=== PATIENT | female | born 1935 | race Caucasian/White ===

== ENCOUNTER 2016-10-25 11:42 | Observation (INO) | payer MEDICARE, OTHER ==
[2016-10-25 11:42] VITALS: BMI 23.0
[2016-10-25] MEDS ORDERED: Sodium Chloride 0.9% 1,000 ML IV STA (12:15)
--- NOTE | 2016-10-25 12:23 | ED PDOC ---
HPI: General Adult Time Seen by Provider: 10/25/16 12:00 Chief Complaint (Nursing): GI Problem Chief Complaint (Provider): Diarrhea History Per: Patient History/Exam Limitations: no limitations Onset/Duration Of Symptoms: Days Have you had recent travel within the past 21 days to any of the following countries: [place], [place], [place] or [place]?: No Current Symptoms Are (Timing): Still Present Severity: None Additional Complaint(s): 81 y/o F with PMHx of CVA and pacemaker implantation in 2004, Chronic body aches , osteoporosis, presents to ED c/o watery diarrhea for 11 days. Patient states for the past 2 days the diarrhea is less frequent but black. She admits taking Pepto bismol the past couple of days. Denies abd pain. C/o burping frequently. Denies fever, SON, CP, palpitations. Admits lack of appetite, generalized weakness. Patient takes multiple medication including Tylenol, Lyrica, Alendronate, Omeprazole, Amlodipine. Denies recent hospitalizations or abx use. Past Medical History Vital Signs: Last Vital Signs Temp 97 F L 10/25/16 11:43 Pulse 73 10/25/16 11:43 Resp 16 10/25/16 11:43 BP 163/100 H 10/25/16 11:43 Pulse Ox 98 10/25/16 16:52 - Medical History PMH: Arthritis, CAD, CVA, Depression, HTN, Hypothyroidism Denies: Diabetes, Hepatitis, HIV, Seizures, Sexually Transmitted Disease - Surgical History Surgical History: Pacemaker Other surgeries: BTL. Shoulder Sx - Family History Family History: States: Unknown Family Hx - Living Arrangements Living Arrangements: Alone - Home Medications Home Medications: Ambulatory Orders Medication Instructions Recorded Carvedilol [Coreg] 6.25 mg PO BID 02/27/14 Cilostazol 100 mg PO DAILY 02/27/14 Clopidogrel [Plavix] 75 mg PO DAILY 02/27/14 Escitalopram [Lexapro] 10 mg PO DAILY 02/27/14 Gabapentin [Neurontin] 100 mg PO BID 02/27/14 Levothyroxine [Synthroid] 0.05 mg PO DAILY 02/27/14 Meclizine [Antivert] 12.5 mg PO DAILY 02/27/14 Megestrol [Megace] 20 mg PO DAILY 02/27/14 Mometasone Furoate [Nasonex] 0.05 mg NS DAILY 02/27/14 Naproxen [Naprosyn] 250 mg PO DAILY 02/27/14 Pregabalin [Lyrica] 50 mg PO DAILY 02/27/14 Diazepam [Valium] 2 mg PO BID PRN #10 tab 09/10/14 Non-Formulary 1 ea .ROUTE DAILY #0 ea 09/10/14 - Allergies Allergies/Adverse Reactions: Allergies Allergy/AdvReac Type Severity Reaction Status Date / Time No Known Allergies Allergy Verified 09/09/14 21:39 Review of Systems ROS Statement: Except As Marked, All Systems Reviewed And Found Negative Constitutional: Positive for: Weakness Gastrointestinal: Positive for: Diarrhea Physical Exam - Reviewed Nursing Documentation Reviewed: Yes Vital Signs Reviewed: Yes - Physical Exam Appears: Positive for: Non-toxic, No Acute Distress Head Exam: Positive for: ATRAUMATIC, NORMAL INSPECTION Skin: Positive for: Normal Color, Dry Eye Exam: Positive for: EOMI, PERRL Cardiovascular/Chest: Positive for: Regular Rate, Rhythm, Murmur. Negative for : Gallop Respiratory: Positive for: Normal Breath Sounds. Negative for: Crackles, Wheezing Gastrointestinal/Abdominal: Positive for: Soft. Negative for: Tenderness, Distended, Guarding, Rebound Extremity: Negative for: Pedal Edema, Calf Tenderness Neurologic/Psych: Positive for: Alert, Oriented - Laboratory Results Result Diagrams: 10/25/16 12:53 10/25/16 12:53 - ECG O2 Sat by Pulse Oximetry: 98 - Progress ED Course And Treament: Hemocult and rectal exam negative for blood. CT shows Colitis, diverticulosis but no diverticulitis Hyperchrolemia No white count or other electrolyte imbalance Patient to be admitted for obs and to receive IV abx treatment with Cipro and Flagyl for Colitis Medical Decision Making Medical Decision Makin81 y/o F with PMHx of Osteporosis, chronic pain, pacemaker and stroke presents c /o diarrhea and black stools Diarrhea Dark stools(concomitant used of bismuth ) R/O GI bleeding(Patient on multiple meds) CBC, CMP FOBT Abd and pelvis CT with IV contrast Acetaminophen level IV fluids Disposition - Clinical Impression Clinical Impression: Colitis - Patient ED Disposition Is Patient to be Admitted: Yes - Disposition Disposition Time: 17:10 Condition: STABLE Forms: [employer] (Citizen [place])
[2016-10-25 13:02] LABS: BASO % 0.6 % (0.0-2.0); EOS # 0.1 K/uL (0.0-0.7); EOS % 1.3 % (0.0-4.0); LYMPH # 1.7 K/uL (1.0-4.3); LYMPH % 37.3 % (20.0-40.0); MEAN CELL VOLUME 80.6 fl (81.0-99.0); MEAN CORPUSCULAR HEMOGLOBIN 26.7 pg (27.0-31.0); MEAN CORPUSCULAR HGB CONC 33.2 g/dL (33.0-37.0); MEAN PLATELET VOLUME 9.1 fl (7.2-11.7); MONO # 0.5 K/uL (0.0-0.8); MONO % 10.9 % (0.0-10.0); NEUT # 2.3 K/uL (1.8-7.0); NEUT % 49.9 % (50.0-75.0); NRBC % 0.1 % (0.0-0.0); RBC 4.5 Mil/uL (3.80-5.20); RED CELL DISTRIBUTION WIDTH 14.1 % (11.5-14.5); WHITE BLOOD COUNT 4.7 K/uL (4.8-10.8)
[2016-10-25 13:08] LABS: ALB/GLOB RATIO 1.3 (1.0-2.1); ALBUMIN 3.9 g/dL (3.5-5.0); CALCIUM 9.5 mg/dL (8.4-10.2)
[2016-10-25 13:16] LABS: INR 1.1 (0.9-1.2); PROTHROMBIN TIME 11.4 Seconds (9.8-13.1)
[2016-10-25] MEDS ORDERED: Iohexol 300 100 ML IJ ONE (13:18)
[2016-10-25] MEDS ORDERED: Sodium Chloride 0.9% 0 ML IV ONE (13:18)
[2016-10-25] MEDS ORDERED: Sodium Chloride 0.9% 50 ML IV ONE (13:34)
[2016-10-25 15:03] LABS: SQUAMOUS EPITHIAL 1 /hpf (0-5); URINE BACTERIA RARE (<OCC); URINE BILIRUBIN NEGATIVE (NEGATIVE); URINE BLOOD NEGATIVE (NEGATIVE); URINE CLARITY CLEAR (Clear); URINE COLOR YELLOW (YELLOW); URINE GLUCOSE (UA) NEG (Normal); URINE LEUKOCYTE ESTERASE MOD Leu/uL (Negative); URINE NITRATE NEGATIVE (NEGATIVE); URINE PROTEIN NEGATIVE (NEGATIVE); URINE UROBILINOGEN 0.2-1.0 mg/dL (0.2-1.0)
--- NOTE | 2016-10-25 15:51 | CARD ---
APPROVED REPORT EKG Measurement Heart [id number] [place] [id number] <Conclusion> Normal sinus rhythm Normal ECG
--- NOTE | 2016-10-25 16:16 | CT ---
PROCEDURE: CT Abdomen and Pelvis without intravenous contrast HISTORY: Diarrhea COMPARISON: None. TECHNIQUE: CT scan of the abdomen and pelvis was performed without administration of intravenous contrast. Oral contrast was not administered. Coronal and sagittal reformatted images were obtained. Radiation dose: Total exam DLP = 552.29 mGy-cm. This CT exam was performed using one or more of the following dose reduction techniques: Automated exposure control, adjustment of the mA and/or kV according to patient size, and/or use of iterative reconstruction technique. FINDINGS: LOWER THORAX: The lung bases are clear. LIVER: The liver is normal in size. A small low-attenuation area in the hepatic dome is statistically most compatible with a small cyst. No intrahepatic biliary ductal dilatation. GALLBLADDER AND BILE DUCTS: There are no calcified gallstones. PANCREAS: The pancreas is normal in size. No gross lesion or ductal dilatation. SPLEEN: The spleen is normal in size. ADRENALS: Both adrenal glands are normal in size without discrete nodule. KIDNEYS AND URETERS: Both kidneys are normal in size without hydronephrosis or nephrolithiasis. VASCULATURE: There are atherosclerotic aortoiliac calcifications. No aortic aneurysm. BOWEL: The small bowel loops are normal in caliber. There is left colonic diverticulosis without CT evidence for acute diverticulitis. There is mild distention of fluid-filled ascending and transverse colon. There is also fluid in the left hemicolon. APPENDIX: Normal appendix. PERITONEUM: No free fluid. No free air. LYMPH NODES: No enlarged lymph nodes. BLADDER: Unremarkable. REPRODUCTIVE: The uterus is surgically absent. BONES: No acute fracture. There is severe levoscoliosis in the lumbar spine and advanced multilevel degenerative disc disease. OTHER FINDINGS: None. IMPRESSION: 1. Mild distention of fluid-filled ascending and transverse colon, and fluid in the left hemicolon could represent nonspecific colitis. No evidence of bowel obstruction. 2. Left colonic diverticulosis without CT evidence for acute diverticulitis.
[2016-10-25] MEDS ORDERED: metroNIDAZOLE 500mg/100ml NS 100 ML IV STA (16:26)
[2016-10-25] MEDS ORDERED: Ciprofloxacin 400mg/200ml D5W 400 MG/200 ML BAG IV STA (16:26)
[2016-10-25] MEDS ORDERED: Ciprofloxacin 400mg/200ml D5W 400 MG/200 ML BAG IVPB ONE (17:15)
--- NOTE | 2016-10-25 18:04 | CP.PCM.HP ---
History of Present Illness - History of Present Illness History of Present Illness: An 81 year old female with history of hypertension, pacemaker, CVA in 2004 came for persistent watery diarrhea for 11 days. She took Peptobismol and for the last two days she had black colored stools. She also has chronic pain syndrome and was taking tylenols and lyrica at home. Denying abdominal pain, fever, SOB, chest pain. Denies recent use of antibiotics. She was taking alendronate for osteoporosis. She was admitted for CAT scan finding of 'colitis'. Present on Admission - Present on Admission Any Indicators Present on Admission: No History of DVT/PE: No History of Uncontrolled Diabetes: No Urinary Catheter: No Decubitus Ulcer Present: No Review of Systems - Constitutional Constitutional: Anorexia, Weakness - Cardiovascular Cardiovascular: absent: Chest Pain - Respiratory Respiratory: absent: Cough, Dyspnea - Gastrointestinal Gastrointestinal: Diarrhea, Loose Stools. absent: Abdominal Pain, Cramping, Excessive Flatus, Hematemesis, Hematochezia, Nausea, Vomiting - Neurological Neurological: Dizziness Past Patient History - Infectious Disease Hx of Infectious Diseases: None - Past Medical History & Family History Past Medical History?: Yes - Past Social History Smoking Status: Never Smoked - CARDIAC Hx Hypertension: Yes Hx Pacemaker: Yes - PULMONARY Hx Tuberculosis: No - NEUROLOGICAL Hx Seizures: No - ENDOCRINE/METABOLIC Hx Hypothyroidism: Yes - HEMATOLOGICAL/ONCOLOGICAL Hx Human Immunodeficiency Virus (HIV): No - MUSCULOSKELETAL/RHEUMATOLOGICAL Hx Arthritis: Yes - GENITOURINARY/GYNECOLOGICAL Hx Sexually Transmitted Disorders: No - PSYCHIATRIC Hx Depression: Yes - SURGICAL HISTORY Hx Surgeries: Yes Hx Eye Surgery: Yes (unknown.) Hx Herniorrhaphy: Yes Hx Hysterectomy: Yes Hx Orthopedic Surgery: Yes (right shoulder) Hx Tubal Ligation: Yes - ANESTHESIA Hx Anesthesia: Yes Hx Anesthesia Reactions: No Hx Malignant Hyperthermia: No Meds Allergies/Adverse Reactions: Allergies Allergy/AdvReac Type Severity Reaction Status Date / Time No Known Allergies Allergy Verified 09/09/14 21:39 Physical Exam - Constitutional Appears: Non-toxic, No Acute Distress - Head Exam Head Exam: NORMAL INSPECTION - ENT Exam ENT Exam: Mucous Membranes Moist - Respiratory Exam Respiratory Exam: Clear to Auscultation Bilateral, NORMAL BREATHING PATTERN - Cardiovascular Exam Cardiovascular Exam: REGULAR RHYTHM. absent: Systolic Murmur - GI/Abdominal Exam GI & Abdominal Exam: Normal Bowel Sounds, Soft. absent: Tenderness - Exam External exam: NORMAL EXTERNAL EXAM. absent: Swelling Results - Vital Signs Recent Vital Signs: Last Vital Signs Temp 97 F L 10/25/16 11:43 Pulse 73 10/25/16 11:43 Resp 16 10/25/16 11:43 BP 163/100 H 10/25/16 11:43 Pulse Ox 98 10/25/16 17:11 - Labs Result Diagrams: 10/25/16 12:53 10/25/16 12:53 Assessment & Plan - Assessment and Plan (Free Text) Assessment: An 81 year old female with history of pacemaker, CVA came for watery diarrhea for 11 days colitis gastro-enteritis Plan: iv fluid iv cipro iv flagyl stool culture - Date & Time Date: 10/25/16 Time: 18:08
[2016-10-25] MEDS: Sodium Chloride 0.9% 1,000 ML IV SCH (20:08)
[2016-10-26] MEDS: metroNIDAZOLE 500mg/100ml NS 100 ML IVPB SCH ×2 (00:48→09:44)
[2016-10-26] MEDS ORDERED: Ciprofloxacin 400mg/200ml D5W 400 MG/200 ML BAG IVPB SCH (04:00)
[2016-10-26 06:31] LABS: HEMOGLOBIN 11.1 g/dL (12.0-16.0); MEAN CELL VOLUME 81.3 fl (81.0-99.0); RBC 4.28 Mil/uL (3.80-5.20); RED CELL DISTRIBUTION WIDTH 14.1 % (11.5-14.5); WHITE BLOOD COUNT 4.5 K/uL (4.8-10.8)
[2016-10-26 06:56] LABS: ALB/GLOB RATIO 1.2 (1.0-2.1); ALBUMIN 3.4 g/dL (3.5-5.0); CALCIUM 8.9 mg/dL (8.4-10.2)
[2016-10-26 07:40] VITALS: BP 146/75; PULSE 67; RESP 18; TEMP 98.5; O2SAT 95
[2016-10-26] MEDS: Sodium Chloride 0.9% 1,000 ML IV SCH (08:01)
--- NOTE | 2016-10-26 08:29 | CP.PCM.PN ---
Subjective - Date & Time of Evaluation Date of Evaluation: 10/26/16 Time of Evaluation: 08:28 - Subjective Subjective: no abdominal pain no dizziness patient came with diarrhea Objective - Vital Signs/Intake and Output Vital Signs (last 24 hours): Temp Pulse Resp BP Pulse Ox 98.5 F 67 18 146/75 95 10/26/16 07:40 10/26/16 07:40 10/26/16 07:40 10/26/16 07:40 10/26/16 07:40 - Medications Medications: Current Medications Acetaminophen (Tylenol 325mg Tab) 325 mg PO Q4 PRN PRN Reason: Pain, Mild (1-3) Acetaminophen (Tylenol 325mg Tab) 650 mg PO Q4 PRN PRN Reason: Pain, moderate (4-7) Amlodipine Besylate (Norvasc) 5 mg PO DAILY [facility] Clopidogrel Bisulfate (Plavix) 75 mg PO DAILY [facility] Ciprofloxacin (Cipro 400mg/200ml Dsw) 400 mg in 200 mls @ 200 mls/hr IVPB Q12@ 0400,1600 [facility] Last Admin: 10/26/16 03:44 Dose: 200 mls/hr Metronidazole (Flagyl 500mg/100ml Ns) 100 mls @ 100 mls/hr IVPB Q8 [facility] Last Admin: 10/26/16 00:48 Dose: 100 mls/hr Sodium Chloride (Sodium Chloride 0.9%) 1,000 mls @ 80 mls/hr IV .[id number] [facility] Stop: 10/26/16 17:02 Last Admin: 10/26/16 08:01 Dose: Not Given Pantoprazole Sodium (Protonix Inj) 40 mg IVP DAILY [facility] Pregabalin (Lyrica) 50 mg PO DAILY [facility] - Labs Labs: 10/26/16 05:30 10/26/16 05:30 PT 11.4 Seconds (9.8-13.1) 10/25/16 12:53 INR 1.1 (0.9-1.2) 10/25/16 12:53 APTT 25.0 Seconds (25.6-37.1) L 10/25/16 12:53 - Constitutional Appears: Non-toxic, No Acute Distress - Neck Exam Neck Exam: Full ROM - Respiratory Exam Respiratory Exam: Clear to Ausculation Bilateral, NORMAL BREATHING PATTERN - Cardiovascular Exam Cardiovascular Exam: REGULAR RHYTHM - GI/Abdominal Exam GI & Abdominal Exam: Normal Bowel Sounds. absent: Tenderness Assessment and Plan - Assessment and Plan (Free Text) Assessment: acute colitis history of pacemaker and CVA Plan: waiting for stool culture iv fluid iv protonix
--- NOTE | 2016-10-26 12:50 | CP.PCM.PCO ---
Assessment/Plan - Assessment/Plan Assessment (Free Text): Pt stable, tolerating regular diet. Has no had any BM while in hospital. Denies sob, f/c/n/v. States she feels okay. Pt discharged home on 7 days of cipro/ flagy. Rx given. Pt seen and cleared for d/c home by Dr. Navarro - Consults Consult Orders: Consultations 10/25/16 22:47 Pastoral Care Referral Routine Comment: Physician Instructions: Reason For Exam: new admit, druze - Problems Patient Problems: Problem List (Active/Current) Problem Status Onset Code Colitis Acute K52.9
== END 2016-10-26 16:37 | disposition home health service (06) ==
LOC: H.ER 11:42 → H.ERHOLD 16:58 → H.MEDSURG1 18:17
PROVIDERS: ADMIT Internal Medicine; ATTEND Internal Medicine
DX: K52.9 Noninfective gastroenteritis and colitis, unspecified (principal); G89.4 Chronic pain syndrome; I10 Essential (primary) hypertension; I25.10 Atherosclerotic heart disease of native coronary artery without angina pectoris; E03.9 Hypothyroidism, unspecified; M81.0 Age-related osteoporosis without current pathological fracture; Z86.73 Personal history of transient ischemic attack (TIA), and cerebral infarction without residual deficits; Z95.0 Presence of cardiac pacemaker
CPT/HCPCS: 36415; 74176; 80053; 81003; 84443; 85025; 85027; 85610; 85730; 86850; 86900; 93005; 96360; 99283; C9113; G0378; G0480; J0744; J7040

== ENCOUNTER 2016-11-03 16:29 | Emergency (ER) | payer MEDICARE, OTHER ==
[2016-11-03 16:29] VITALS: BMI 23.0
[2016-11-03] MEDS ORDERED: Sodium Chloride 0.9% 1,000 ML IV STA (17:49)
[2016-11-03] MEDS ORDERED: Iohexol 240 (50 ml) PO ONE (17:53)
[2016-11-03] MEDS ORDERED: Iohexol 240 (50 ml) ONE (18:32)
[2016-11-03 18:33] LABS: BASO % 0.3 % (0.0-2.0); EOS # 0.1 K/uL (0.0-0.7); HEMATOCRIT 41.2 % (34.0-47.0); LYMPH # 0.2 K/uL (1.0-4.3); LYMPH % 2.3 % (20.0-40.0); MEAN CELL VOLUME 81.3 fl (81.0-99.0); MEAN CORPUSCULAR HEMOGLOBIN 25.8 pg (27.0-31.0); MEAN CORPUSCULAR HGB CONC 31.7 g/dL (33.0-37.0); MEAN PLATELET VOLUME 9.4 fl (7.2-11.7); MONO # 0.7 K/uL (0.0-0.8); MONO % 7.2 % (0.0-10.0); NEUT # 8.5 K/uL (1.8-7.0); NEUT % 89.2 % (50.0-75.0); PLATELET COUNT 211 K/uL (130-400); RED CELL DISTRIBUTION WIDTH 14.5 % (11.5-14.5); WHITE BLOOD COUNT 9.6 K/uL (4.8-10.8)
--- NOTE | 2016-11-03 18:33 | ED PDOC ---
HPI: Abdomen Time Seen by Provider: 11/03/16 16:51 Chief Complaint (Nursing): GI Problem Chief Complaint (Provider): Vomiting and abdominal pain History Per: Patient History/Exam Limitations: no limitations Onset/Duration Of Symptoms: Days Current Symptoms Are (Timing): Still Present Associated Symptoms: Nausea, Vomiting Additional Complaint(s): Brie is an 81 y/o female with a past medical history of hypertension, anxiety , and arthritis, who presents to the ED complaining of epigastric abdominal pain and several episodes of vomiting today. Was hospitalized here on 10/25/16 for colitis and discharged on Cipro/Flagyl for 7 days. Now complaining of chills , intermittent dizziness (not present now), and nausea. Denies back pain. PMD: Dr. Gabrielle Stephens Past Medical History Reviewed: Historical Data, Nursing Documentation, Vital Signs Vital Signs: Last Vital Signs Temp 98.0 F 11/03/16 22:49 Pulse 93 H 11/03/16 22:49 Resp 18 11/03/16 22:49 BP 116/59 L 11/03/16 22:49 Pulse Ox 98 11/03/16 22:49 - Medical History PMH: Anxiety, Arthritis, CAD, CVA, Depression, Gastritis (possible), HTN, Hypothyroidism Denies: Diabetes, Hepatitis, HIV, Chronic Kidney Disease, Seizures, Sexually Transmitted Disease - Surgical History Surgical History: Pacemaker Other surgeries: Hysterectomy, hernia repair - Family History Family History: States: Unknown Family Hx - Home Medications Home Medications: Ambulatory Orders Medication Instructions Recorded Acetaminophen [Tylenol Arthritis] 1,300 mg PO Q8H PRN 10/25/16 Alendronate Sodium [Alendronate 35 mg PO SUN 10/25/16 (Fosamax)] Alprazolam [Xanax] 0.5 mg PO DAILY PRN 10/25/16 Cholecalciferol (Vitamin D3) 2,000 unit PO DAILY 10/25/16 [Vitamin D3] Clopidogrel [Plavix] 75 mg PO DAILY 10/25/16 Dexlansoprazole [Dexilant] 60 mg PO DAILY 10/25/16 Famotidine [Pepcid] 40 mg PO HS 10/25/16 Loratadine [Claritin] 10 mg PO DAILY 10/25/16 Pregabalin [Lyrica] 75 mg PO DAILY 08/15/17 amLODIPine [Norvasc] 5 mg PO DAILY 10/25/16 Ciprofloxacin HCl [Cipro] 500 mg PO BID #14 tab 10/26/16 Metronidazole [Flagyl] 500 mg PO TID #21 tab 10/26/16 Ondansetron [Zofran] 4 mg PO Q8H #12 tab 11/03/16 - Allergies Allergies/Adverse Reactions: Allergies Allergy/AdvReac Type Severity Reaction Status Date / Time No Known Allergies Allergy Verified 09/09/14 21:39 Review of Systems ROS Statement: Except As Marked, All Systems Reviewed And Found Negative Constitutional: Positive for: Chills Gastrointestinal: Positive for: Nausea, Vomiting, Abdominal Pain Musculoskeletal: Negative for: Back Pain Neurological: Positive for: Dizziness (intermittent) Physical Exam - Reviewed Nursing Documentation Reviewed: Yes Vital Signs Reviewed: Yes - Physical Exam Appears: Positive for: No Acute Distress, Uncomfortable Head Exam: Positive for: ATRAUMATIC, NORMAL INSPECTION, NORMOCEPHALIC Skin: Positive for: Normal Color, Warm, Dry Eye Exam: Positive for: EOMI, Normal appearance, PERRL ENT: Positive for: Normal ENT Inspection Neck: Positive for: Normal, Painless ROM, Supple Cardiovascular/Chest: Positive for: Regular Rate, Rhythm. Negative for: Murmur Respiratory: Positive for: Normal Breath Sounds. Negative for: Respiratory Distress Gastrointestinal/Abdominal: Positive for: Soft, Tenderness (Epigastric tenderness on palpation) Back: Positive for: Normal Inspection. Negative for: Vertebral Tenderness Extremity: Positive for: Normal ROM, Capillary Refill (< 2 sec). Negative for: Tenderness, Deformity Neurologic/Psych: Positive for: Alert, Oriented - Laboratory Results Result Diagrams: 11/03/16 18:16 11/03/16 18:16 Medical Decision Making Medical Decision Making: Initial Impression: Vomiting with Abdominal Pain Differentials include colitis, pancreatitis, and gastritis. Mesenteric ischemia needs to be ruled out. Time: 17:42 Initial Plan: --CMP --Lipase --Troponin I --VBG --CBC --Urine dipstick --EKG --NS IV 1000 ml at 1000 mls/hr --Iohexol 50 ml PO --Zofran 4 mg IV --Pending CT Abdomen/Pelvis PO & IV contrast Time: 19:00 --Patient will be signed out to Dr. Bharat Cortés by hi, pending CT and reevaluation Scribe Attestation: Documented by Lois Del Toro, acting as a scribe for Anastasia Alcantara MD Provider Scribe Attestation: All medical record entries made by the Scribe were at my direction and personally dictated by me. I have reviewed the chart and agree that the record accurately reflects my personal performance of the history, physical exam, medical decision making, and the department course for this patient. I have also personally directed, reviewed, and agree with the discharge instructions and disposition. Disposition - Clinical Impression Clinical Impression: Gastroenteritis - Patient ED Disposition Is Patient to be Admitted: Transfer of Care - Disposition Referrals: Gabrielle Stephens MD [Family Provider] - Disposition: Transfer of Care Disposition Time: 19:00 Condition: IMPROVED Prescriptions: Ondansetron [Zofran] 4 mg PO Q8H #12 tab Instructions: Colitis (ED) Forms: [employer] (Italian) Print Language: GE[place]GI[place] Patient Signed Over To: Bharat Cortés (Pending CT and reevaluation)
[2016-11-03 18:42] LABS: ALB/GLOB RATIO 1.3 (1.0-2.1); BILIRUBIN,TOTAL 0.7 mg/dl (0.2-1.3); POTASSIUM 4.8 MMOL/L (3.6-5.0); TOTAL PROTEIN 8.2 G/DL (6.3-8.2)
[2016-11-03 20:00] LABS: VENOUS BLOOD GAS PCO2 48 mmHg (40-60); VENOUS BLOOD PH 7.36 (7.32-7.43)
[2016-11-03 21:53] LABS: EOSINOPHIL 2 % (0-7); NEUTROPHIL 83 % (42-75); TOTAL CELLS COUNTED 100
--- NOTE | 2016-11-03 22:29 | CT ---
EXAM: CT Abdomen and Pelvis Without Intravenous Contrast CLINICAL HISTORY: 81 years old, female; Pain; Abdominal pain; Generalized; Additional info: Abdominal pain vomiting. Patient's gfr is 36. Sent phy. Doc. And prior CT a/p report TECHNIQUE: Axial computed tomography images of the abdomen and pelvis without intravenous contrast. All CT scans at this facility use one or more dose reduction techniques, viz.: automated exposure control; ma/kV adjustment per patient size (including targeted exams where dose is matched to indication; i.e. head); or iterative reconstruction technique. Coronal and sagittal reformatted images were created and reviewed. COMPARISON: CT - ABD PELVIS W/O PO OR IV CONT 10/25/2016 3:25:47 PM FINDINGS: Lower thorax: The bilateral lung bases are clear. ABDOMEN: Liver: No acute findings Gallbladder and bile ducts: The gallbladder is moderately distended, without calcified stones. No intra-extrahepatic biliary ductal dilation. Pancreas: Limited evaluation secondary to the lack of intravenous contrast. Spleen: No acute findings. Adrenals: No acute findings. Kidneys and ureters: No obstructing stones. No hydronephrosis. PELVIS: Bladder: No acute findings. Reproductive: No acute findings. Appendix: The appendix is of normal caliber (series 3, image 100; series 601, image 50). ABDOMEN and PELVIS: Stomach and bowel: Oral contrast extends to the mid to distal small bowel, without distention or obstruction. Stool distends the rectum, without surrounding inflammatory change. Rectosigmoid diverticulosis, without inflammation. The ascending and transverse colons are fluid-filled, similar to previous examination which may represent a nonspecific colitis. Peritoneum: As above. Lymph nodes: Limited evaluation without intravenous contrast. Vasculature: No aortic aneurysm. Bulky calcified atherosclerotic disease. Bones: No acute fracture. IMPRESSION: Stable CT examination of the abdomen and pelvis, with findings in the ascending and transverse colon suggesting a nonspecific colitis, as detailed above.
[2016-11-03 22:49] VITALS: BP 116/59; PULSE 93; RESP 18; TEMP 98; O2SAT 98
--- NOTE | 2016-11-03 22:52 | ED PDOC ---
- Laboratory Results Result Diagrams: 11/03/16 18:16 11/03/16 18:16 Medical Decision Making Medical Decision Making: Time: 19:00 --Patient was signed out by Dr. Anastasia Alcantara to me, pending CT and reevaluation Time: 22:29 CT Abdomen/Pelvis: FINDINGS: Lower thorax: The bilateral lung bases are clear. ABDOMEN: Liver: No acute findings Gallbladder and bile ducts: The gallbladder is moderately distended, without calcified stones. No intra-extrahepatic biliary ductal dilation. Pancreas: Limited evaluation secondary to the lack of intravenous contrast. Spleen: No acute findings. Adrenals: No acute findings. Kidneys and ureters: No obstructing stones. No hydronephrosis. PELVIS: Bladder: No acute findings. Reproductive: No acute findings. Appendix: The appendix is of normal caliber (series 3, image 100; series 601 , image 50). ABDOMEN and PELVIS: Stomach and bowel: Oral contrast extends to the mid to distal small bowel, without distention or obstruction. Stool distends the rectum, without surrounding inflammatory change. Rectosigmoid diverticulosis, without inflammation. The ascending and transverse colons are fluid-filled, similar to previous examination which may represent a nonspecific colitis. Peritoneum: As above. Lymph nodes: Limited evaluation without intravenous contrast. Vasculature: No aortic aneurysm. Bulky calcified atherosclerotic disease. Bones: No acute fracture. IMPRESSION: Stable CT examination of the abdomen and pelvis, with findings in the ascending and transverse colon suggesting a nonspecific colitis, as detailed above. 2300 Upon re-evaluation, patient notes feeling better and is tolerating PO. Patient is medically stable for discharge and will be sent home with PO antibiotic. Return precautions given (vomiting, worsening pain, etc.). Scribe Attestation: Documented by Lois Del Toro, acting as a scribe for Bharat Cortés MD Provider Scribe Attestation: All medical record entries made by the Scribe were at my direction and personally dictated by me. I have reviewed the chart and agree that the record accurately reflects my personal performance of the history, physical exam, medical decision making, and the department course for this patient. I have also personally directed, reviewed, and agree with the discharge instructions and disposition. Disposition - Clinical Impression Clinical Impression: Gastroenteritis - POA Present On Arrival: None - Disposition Referrals: Gabrielle Stephens MD [Family Provider] - Disposition: Routine/Home Disposition Time: 23:00 Condition: IMPROVED Prescriptions: Ondansetron [Zofran] 4 mg PO Q8H #12 tab Instructions: Colitis (ED) Forms: [facility] (Irish) Print Language: TAJIK
== END 2016-11-03 23:31 | disposition home or self-care (01) ==
LOC: H.ER 16:29
DX: K52.9 Noninfective gastroenteritis and colitis, unspecified (principal); Z86.73 Personal history of transient ischemic attack (TIA), and cerebral infarction without residual deficits; Z95.0 Presence of cardiac pacemaker; I10 Essential (primary) hypertension
CPT/HCPCS: 74176; 80053; 82803; 83690; 84484; 85025; 96374; 99284; J2405; J7040; Q9966

== ENCOUNTER 2017-07-14 08:40 | Day surgery (SDC) | payer MEDICARE ==
[2017-07-14 09:27] VITALS: BMI 20.7
[2017-07-14] MEDS ORDERED: Lactated Ringer's 500 ML IV ONE (09:34)
[2017-07-14] MEDS ORDERED: Propofol 10 mg/ml Inj (20 ML) ONE (10:10)
[2017-07-14 10:55] VITALS: RESP 21; TEMP 97; O2SAT 98
[2017-07-14 10:56] VITALS: BP 134/79; PULSE 76
== END 2017-07-14 14:42 | disposition home or self-care (01) ==
LOC: H.ENDO 08:40
PROVIDERS: ATTEND Internal Medicine Gastroenterology
DX: Z12.11 Encounter for screening for malignant neoplasm of colon (principal); K64.8 Other hemorrhoids; D12.2 Benign neoplasm of ascending colon; K57.30 Diverticulosis of large intestine without perforation or abscess without bleeding; Z86.73 Personal history of transient ischemic attack (TIA), and cerebral infarction without residual deficits; E78.5 Hyperlipidemia, unspecified; I10 Essential (primary) hypertension; M10.9 Gout, unspecified
CPT/HCPCS: 45380; 88305; J2001; J2704; J7120

== ENCOUNTER 2017-07-28 09:14 | Day surgery (SDC) | payer MEDICARE, MEDICAID ==
[2017-07-28] MEDS ORDERED: Lactated Ringer's 500 ML IV ONE (09:35)
[2017-07-28] MEDS ORDERED: Propofol 10 mg/ml Inj (20 ML) ONE (11:00)
[2017-07-28 11:25] VITALS: RESP 16; TEMP 96.7; O2SAT 100
[2017-07-28 11:34] VITALS: BP 129/88; PULSE 66
== END 2017-07-28 11:57 | disposition home or self-care (01) ==
LOC: H.ENDO 09:14
PROVIDERS: ATTEND Internal Medicine Gastroenterology
DX: R13.10 Dysphagia, unspecified (principal); E78.5 Hyperlipidemia, unspecified; Z86.73 Personal history of transient ischemic attack (TIA), and cerebral infarction without residual deficits; I10 Essential (primary) hypertension; K22.8 Other specified diseases of esophagus; K29.50 Unspecified chronic gastritis without bleeding
CPT/HCPCS: 43239; 88305; J2001; J2704; J3010; J7120

== ENCOUNTER 2018-04-12 13:47 | Inpatient (IN) | payer MEDICARE, MEDICAID ==
--- NOTE | 2018-04-12 14:20 | ED PDOC ---
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 denies: Fever, Nausea, Vomiting, Diarrhea, Chest Pain Additional Complaint(s): 82 year old female with PMHx of hypertension, arthritis, CAD and CVA presents to the ED with decreased appetite and weight loss for the past two weeks. Patient is unsure how much weight she lost. She describes generalized body pain that she has had for many years. Patient denies abdominal pain, fever, diarrhea, chest pain, shortness of breath or any other medical complaints. PMD: Dr. Stephens Past Medical History Reviewed: Historical Data, Nursing Documentation, Vital Signs Vital Signs: Last Vital Signs Temp 98.2 F 04/12/18 13:49 Pulse 80 04/12/18 13:49 Resp 18 04/12/18 13:49 BP 164/84 H 04/12/18 13:49 Pulse Ox 96 04/12/18 13:49 - Medical History PMH: Anxiety, Arthritis, CAD, CVA, Depression, Gastritis (possible), HTN, Hyperc holesterolemia, Hypothyroidism Denies: Diabetes, Hepatitis, HIV, Chronic Kidney Disease, Seizures, Sexually Transmitted Disease - Surgical History Surgical History: Hernia Repair, Pacemaker Other surgeries: hysterectomy - Family History Family History: States: Unknown Family Hx - Social History Current smoker - smoking cessation education provided: No Ex-Smoker (has not smoked in the last 12 months): No Alcohol: None - Home Medications Home Medications: Ambulatory Orders Medication Instructions Recorded Clopidogrel [Plavix] 75 mg PO DAILY 10/25/16 Pregabalin [Lyrica] 75 mg PO Q12 10/25/16 amLODIPine [Norvasc] 5 mg PO DAILY 10/25/16 hydrALAZINE [Apresoline] 25 mg PO Q12 04/12/18 - Allergies Allergies/Adverse Reactions: Allergies Allergy/AdvReac Type Severity Reaction Status Date / Time No Known Allergies Allergy Verified 04/12/18 13:49 Review of Systems ROS Statement: Except As Marked, All Systems Reviewed And Found Negative Constitutional: Positive for: Weight loss. Negative for: Fever Cardiovascular: Negative for: Chest Pain Respiratory: Negative for: Shortness of Breath Gastrointestinal: Positive for: Other (loss of appetite). Negative for: Abdominal Pain, Diarrhea Physical Exam - Reviewed Nursing Documentation Reviewed: Yes Vital Signs Reviewed: Yes - Physical Exam Appears: Positive for: Non-toxic, No Acute Distress Head Exam: Positive for: ATRAUMATIC, NORMOCEPHALIC Skin: Positive for: Normal Color, Warm, Dry Eye Exam: Positive for: EOMI, Normal appearance, PERRL ENT: Positive for: Normal ENT Inspection Neck: Positive for: Normal, Painless ROM Cardiovascular/Chest: Positive for: Regular Rate, Rhythm. Negative for: Murmur Respiratory: Positive for: Normal Breath Sounds. Negative for: Respiratory Distress Gastrointestinal/Abdominal: Positive for: Tenderness (bilateral lower quadrant) Back: Positive for: Normal Inspection Extremity: Positive for: Normal ROM (upper and lower). Negative for: Pedal Edema, Deformity Neurologic/Psych: Positive for: Alert, Oriented (x3) - Laboratory Results Result Diagrams: 04/15/18 08:30 04/15/18 05:29 - ECG O2 Sat by Pulse Oximetry: 96 (RA) Pulse Ox Interpretation: Normal Medical Decision Making Medical Decision Making: Time: 1423 Impression: Loss of appetite and abdominal pain Plan: --CT abdomen and pelvis --EKG --CMP --Lipase --Urine dip --CBC --PTT --PT/INR --CXR --Morphine 1 mg iv --Influenza --UA Time: 1500 --Patient signed out to Dr. Villegas by this provider, pending workup and revaluation. Scribe Attestation: Documented by Radha Erazo, acting as a scribe for Franchesca Stoll MD. Provider Scribe Attestation: All medical record entries made by the Scribe were at my direction and personally dictated by me. I have reviewed the chart and agree that the record accurately reflects my personal performance of the history, physical exam, medical decision making, and the department course for this patient. I have also personally directed, reviewed, and agree with the discharge instructions and disposition. Disposition - Clinical Impression Clinical Impression: Abnormal CT of the abdomen, Pain, Weight loss - Disposition Disposition: Transfer of Care Disposition Time: 19:00 Condition: STABLE Patient Signed Over To: Hardy Villegas
--- NOTE | 2018-04-12 15:15 | ED PDOC ---
- Laboratory Results Result Diagrams: 04/12/18 15:05 04/12/18 15:05 - ECG O2 Sat by Pulse Oximetry: 96 (RA) Pulse Ox Interpretation: Normal Medical Decision Making Medical Decision Making: Time: 1500 --Patient signed out to this provider by Dr. Stoll, pending workup and reevaluation. Time:1646 Chest x-ray FINDINGS: LUNGS: No active pulmonary disease. PLEURA: No significant pleural effusion identified. No pneumothorax apparent. CARDIOVASCULAR: Atherosclerotic calcifications identified primarily aortic arch. Position/ configuration of pacemaker\AICD device: Satisfactory. No radiographic findings to suggest acute or significant cardiovascular disease. No pulmonary vascular congestion. OSSEOUS STRUCTURES: No significant abnormalities. VISUALIZED UPPER ABDOMEN: Normal. OTHER FINDINGS: None. IMPRESSION: No active disease. No significant interval change compared to the prior examination(s). Time: 1752 CT abdomen and pelvis FINDINGS: LOWER THORAX: Mild passive/dependent type atelectasis seen both posterior lower lung verduzco. There appears to be a tiny 1.7 mm nodular density in the lateral aspect right middle lobe best seen on axial series 5, image number 7. This could represent a vessel branch point however follow-up at interval could be performed to assess stability. Heart size is within range of normal. No significant pericardial effusion. Tiny hiatal hernia. LIVER: Liver exhibits normal size and attenuation pattern without masses collections or calcifications. Minimal fatty hepatic infiltration. No obvious hepatic mass collection or calcification. Portal and splenic veins opacified. GALLBLADDER AND BILE DUCTS: Gallbladder is physiologically distended. No evidence of intraluminal gallbladder calculi. PANCREAS: The pancreas is atrophic. The pancreatic duct is appears mildly dilated at the level of the pancreatic head just prior to the junction of the common bile duct however no definitive pancreatic head mass is identified. Consider follow-up MRCP for further evaluation if indicate. SPLEEN: Spleen exhibits normal size and attenuation pattern without mass collection or calcification. ADRENALS: There are no adrenal lesions. KIDNEYS AND URETERS: Kidneys heart somewhat diminutive exhibiting lobular contours and what probably represents scattered areas of scarring and cortical volume loss with heterogeneous appearing nephrograms. No evidence of nephrolithiasis or hydronephrosis. VASCULATURE: Unremarkable. No aortic aneurysm. Mild moderate aortic atherosclerotic calcification or mural plaque present. BOWEL: Evaluation of the bowel is somewhat limited due to the lack of oral contrast material. The stomach is incompletely distended with thick-walled appearance.. Multiple loops of nondistended fluid-filled small bowel present.. There are 1 or 2 loops in the inferior pelvis which also exhibits slight wall thickening; rule out enteritis. No evidence of acute mechanical small bowel obstruction. Multiple colonic diverticula seen arising from the sigmoid colon however no rad iographic evidence to suggest acute diverticulitis. APPENDIX: No evidence of acute appendicitis. PERITONEUM: Unremarkable. No free fluid. No free air. Small fat containing umbilical hernia. Small fat containing left inguinal hernia. LYMPH NODES: Unremarkable. No enlarged lymph nodes. BLADDER: The urinary bladder is physiologically distended. No evidence of intraluminal urinary bladder calculi. REPRODUCTIVE: Hysterectomy BONES: Multilevel degenerative spondylosis of the lumbar and to a lesser degree lower thoracic spine. There is also a mild scoliotic deformity centered at the at the L3 level which may be secondary to minor right lateral stature loss of the L3 segment.. OTHER FINDINGS: None. IMPRESSION: Minor fatty hepatic infiltration. Findings suggest mild localized enteritis involving short segment of the distal small bowel. Suspect small diverticulum arising from the duodenum at the level of the ampulla of Vater. There is also slight dilatation of the proximal pancreatic duct and distal common bile duct at the level of the pancreatic head... No definitive pancreatic head mass is seen however followup MRCP could be performed for further evaluation if necessary. Hysterectomy. 19:18 Urinalysis is negative 19:41 Patient is still reporting pain. Morphine ordered and patient to be admitted for pain, abnormal CT findings (discussed w farhan) to Dr. Navas, med service. 19:[address] Navas and patient to be admitted to him. GI consult placed as well Scribe Attestation: Documented by Radha Erazo and Chris Erazo, acting as a scribe for Hardy Villegas MD. Provider Scribe Attestation: All medical record entries made by the Scribe were at my direction and personally dictated by me. I have reviewed the chart and agree that the record accurately reflects my personal performance of the history, physical exam, medical decision making, and the department course for this patient. I have also personally directed, reviewed, and agree with the discharge instructions and disposition. Disposition Counseled Patient/Family Regarding: Studies Performed, Diagnosis - Clinical Impression Clinical Impression: Abnormal CT of the abdomen, Pain, Weight loss - POA Present On Arrival: None - Disposition Disposition: Hospitalized as Observation Patient Disposition Time: 19:40 Condition: STABLE
[2018-04-12 15:25] LABS: INR 1.1
[2018-04-12 15:26] LABS: BASO # 0.1 K/uL (0.0-0.2); BASO % 1.4 % (0.0-2.0); EOS # 0.1 K/uL (0.0-0.7); EOS % 2.3 % (0.0-4.0); HEMOGLOBIN 12.6 g/dL (12.0-16.0); LYMPH # 1.7 K/uL (1.0-4.3); LYMPH % 31.2 % (20.0-40.0); MEAN CELL VOLUME 81.7 fl (81.0-99.0); MEAN CORPUSCULAR HEMOGLOBIN 26.6 pg (27.0-31.0); MEAN CORPUSCULAR HGB CONC 32.5 g/dL (33.0-37.0); MEAN PLATELET VOLUME 9.3 fl (7.2-11.7); MONO # 0.7 K/uL (0.0-0.8); NEUT # 2.9 K/uL (1.8-7.0); NEUT % 53.1 % (50.0-75.0); RBC 4.76 Mil/uL (3.80-5.20); RED CELL DISTRIBUTION WIDTH 13.6 % (11.5-14.5); WHITE BLOOD COUNT 5.5 K/uL (4.8-10.8)
[2018-04-12 15:28] LABS: PARTIAL THROMBOPLASTIN TIME 30.3 Seconds (25.6-37.1)
[2018-04-12 15:29] LABS: ALB/GLOB RATIO 1.1 (1.0-2.1); ALBUMIN 4.3 g/dL (3.5-5.0); CALCIUM 10.3 mg/dL (8.4-10.2)
[2018-04-12] MEDS ORDERED: Sodium Chloride 0.9% 50 ML IV ONE (16:26)
[2018-04-12] MEDS ORDERED: Iodixanol 320 MG/ML 100 ML BOTTLE IV ONE (16:26)
--- NOTE | 2018-04-12 16:50 | RAD ---
Date of service: 04/12/2018 HISTORY: Abd pain COMPARISON: 10/01/2014. TECHNIQUE: Chest PA and lateral FINDINGS: LUNGS: No active pulmonary disease. PLEURA: No significant pleural effusion identified. No pneumothorax apparent. CARDIOVASCULAR: Atherosclerotic calcifications identified primarily aortic arch. Position/ configuration of pacemaker No radiographic findings to suggest acute or significant cardiovascular disease. No pulmonary vascular congestion. OSSEOUS STRUCTURES: No significant abnormalities. VISUALIZED UPPER ABDOMEN: Normal. OTHER FINDINGS: None. IMPRESSION: No active disease. No significant interval change compared to the prior examination(s).
--- NOTE | 2018-04-12 17:56 | CT ---
Date of service: 04/12/2018 PROCEDURE: CT Abdomen and Pelvis with contrast HISTORY: Bilateral lower quadrant COMPARISON: Comparison made with CT scan of the abdomen and pelvis 11/03/2016. TECHNIQUE: Contiguous helical/transaxial sections of the abdomen pelvis performed following intravenous injection of approximately 75 cc Visipaque 320 contrast material. Additional 2D sagittal and coronal reformats generated. Radiation dose: Total exam DLP = 371.2 mGy-cm. This CT exam was performed using one or more of the following dose reduction techniques: Automated exposure control, adjustment of the mA and/or kV according to patient size, and/or use of iterative reconstruction technique. FINDINGS: LOWER THORAX: Mild passive/dependent type atelectasis seen both posterior lower lung verduzco. There appears to be a tiny 1.7 mm nodular density in the lateral aspect right middle lobe best seen on axial series 5, image number 7. This could represent a vessel branch point however follow-up at interval could be performed to assess stability. Heart size is within range of normal. No significant pericardial effusion. Tiny hiatal hernia. LIVER: Liver exhibits normal size and attenuation pattern without masses collections or calcifications. Minimal fatty hepatic infiltration. No obvious hepatic mass collection or calcification. Portal and splenic veins opacified. GALLBLADDER AND BILE DUCTS: Gallbladder is physiologically distended. No evidence of intraluminal gallbladder calculi. PANCREAS: The pancreas is atrophic. The pancreatic duct is appears mildly dilated at the level of the pancreatic head just prior to the junction of the common bile duct however no definitive pancreatic head mass is identified. Consider follow-up MRCP for further evaluation if indicate. SPLEEN: Spleen exhibits normal size and attenuation pattern without mass collection or calcification. ADRENALS: There are no adrenal lesions. KIDNEYS AND URETERS: Kidneys heart somewhat diminutive exhibiting lobular contours and what probably represents scattered areas of scarring and cortical volume loss with heterogeneous appearing nephrograms. No evidence of nephrolithiasis or hydronephrosis. VASCULATURE: Unremarkable. No aortic aneurysm. Mild moderate aortic atherosclerotic calcification or mural plaque present. BOWEL: Evaluation of the bowel is somewhat limited due to the lack of oral contrast material. The stomach is incompletely distended with thick-walled appearance.. Multiple loops of nondistended fluid-filled small bowel present.. There are 1 or 2 loops in the inferior pelvis which also exhibits slight wall thickening; rule out enteritis. No evidence of acute mechanical small bowel obstruction. Multiple colonic diverticula seen arising from the sigmoid colon however no radiographic evidence to suggest acute diverticulitis. APPENDIX: No evidence of acute appendicitis. PERITONEUM: Unremarkable. No free fluid. No free air. Small fat containing umbilical hernia. Small fat containing left inguinal hernia. LYMPH NODES: Unremarkable. No enlarged lymph nodes. BLADDER: The urinary bladder is physiologically distended. No evidence of intraluminal urinary bladder calculi. REPRODUCTIVE: Hysterectomy BONES: Multilevel degenerative spondylosis of the lumbar and to a lesser degree lower thoracic spine. There is also a mild scoliotic deformity centered at the at the L3 level which may be secondary to minor right lateral stature loss of the L3 segment.. OTHER FINDINGS: None. IMPRESSION: Minor fatty hepatic infiltration. Findings suggest mild localized enteritis involving short segment of the distal small bowel. Suspect small diverticulum arising from the duodenum at the level of the ampulla of Vater. There is also slight dilatation of the proximal pancreatic duct and distal common bile duct at the level of the pancreatic head... No definitive pancreatic head mass is seen however followup MRCP could be performed for further evaluation if necessary. Hysterectomy.
[2018-04-12 19:50] LABS: URINE BILIRUBIN NEGATIVE (NEGATIVE); URINE BLOOD NEGATIVE (NEGATIVE); URINE CLARITY CLEAR (Clear); URINE COLOR YELLOW (YELLOW); URINE GLUCOSE (UA) NEG (NEGATIVE); URINE LEUKOCYTE ESTERASE NEG Leu/uL (Negative); URINE PROTEIN NEGATIVE (NEGATIVE); URINE UROBILINOGEN 0.2-1.0 mg/dL (0.2-1.0)
[2018-04-12] MEDS ORDERED: Morphine 4 MG/ML VIAL IV STA (20:28)
[2018-04-12] MEDS ORDERED: Morphine 4 MG/ML VIAL ONE (20:28)
[2018-04-13] MEDS ORDERED: Morphine 4 MG/ML VIAL IVP PRN (00:26)
[2018-04-13] MEDS: Sodium Chloride 0.45% 1,000 ML IV SCH ×2 (00:51→13:00)
--- NOTE | 2018-04-13 06:45 | CP.PCM.HP ---
<Srinivasan Rogers - Last Filed: 04/13/18 11:10> History of Present Illness - History of Present Illness History of Present Illness: This is 82 y/o F with PMH of CVA in 2004, pacemaker, HTN, and Osteoarthritis admitted to [facility] for evaluation and treatment of poor appetite and possible recent weight loss. Patient comes to ER c/o 2 weeks hx of poor appetite and thinks she might have lost some weight but not sure. Patient reports no abdominal pain but reports constipation and bloating. Denies any diarrhea, vomiting, nausea, suprapubic pain, dysuria, fever, sob, chest pain or dizziness. Patient reports she was 134 LB one month ago.Patient reports she lives by her self in a appt and has nurse who comes to her house for 4hrs/day. VOYCE: [id number] PMH: CVA in 2004, pacemaker, HTN, and Osteoarthritis PSH: Appendectomy, BTL Allg; NKDA FH: Denies any Hx of cancers SH: Denies alcohol, smoking or drug use ROS: As per HPI Present on Admission - Present on Admission Any Indicators Present on Admission: No History of DVT/PE: No Review of Systems - Constitutional Constitutional: absent: Daytime Sleepiness - EENT Eyes: absent: Change in Vision, Diplopia Ears: absent: Ear Discharge Nose/Mouth/Throat: absent: Nasal Congestion, Nose Pain - Cardiovascular Cardiovascular: absent: Chest Pain, Chest Pain at Rest, Diaphoresis, Dyspnea - Respiratory Respiratory: absent: Cough, Dyspnea, Hemoptysis, Wheezing - Gastrointestinal Gastrointestinal: Bloating, Constipation. absent: Abdominal Pain - Genitourinary Genitourinary: absent: Change in Urinary Stream, Dysuria, Flank Pain, Hematuria, Nocturia - Musculoskeletal Musculoskeletal: absent: Abnormal Gait - Integumentary Integumentary: absent: Change in Hair, Skin Ulcer - Neurological Neurological: absent: Abnormal Gait - Psychiatric Psychiatric: absent: Abnormal Sleep Pattern - Hematologic/Lymphatic Hematologic: absent: Easy Bleeding Past Patient History - Infectious Disease Hx of Infectious Diseases: None - Past Medical History & Family History Past Medical History?: Yes - Past Social History Smoking Status: Never Smoked - CARDIAC Hx Cardiac Disorders: Yes Hx Hypercholesterolemia: Yes Hx Hypertension: Yes - PULMONARY Hx Respiratory Disorders: No - NEUROLOGICAL Hx Neurological Disorder: No - HEENT Hx HEENT Problems: No - RENAL Hx Chronic Kidney Disease: No - ENDOCRINE/METABOLIC Hx Endocrine Disorders: No - HEMATOLOGICAL/ONCOLOGICAL Hx Blood Disorders: No Hx AIDS: No Hx Human Immunodeficiency Virus (HIV): No - INTEGUMENTARY Hx Dermatological Problems: No - MUSCULOSKELETAL/RHEUMATOLOGICAL Hx Musculoskeletal Disorders: Yes Hx Falls: No Hx Unsteady Gait: Yes - GASTROINTESTINAL Hx Gastrointestinal Disorders: No - GENITOURINARY/GYNECOLOGICAL Hx Genitourinary Disorders: No - PSYCHIATRIC Hx Psychophysiologic Disorder: No Hx Substance Use: No - SURGICAL HISTORY Hx Surgeries: Yes Hx Cardiac Catheterization: Yes Hx Herniorrhaphy: Yes (LT) Hx Hysterectomy: Yes Hx Tubal Ligation: Yes - ANESTHESIA Hx Anesthesia: Yes Hx Anesthesia Reactions: No Hx Malignant Hyperthermia: No Meds Allergies/Adverse Reactions: Allergies Allergy/AdvReac Type Severity Reaction Status Date / Time No Known Allergies Allergy Verified 04/12/18 13:49 Physical Exam - Constitutional Appears: No Acute Distress - Head Exam Head Exam: NORMAL INSPECTION - Eye Exam Eye Exam: EOMI, Normal appearance Pupil Exam: NORMAL ACCOMODATION - ENT Exam ENT Exam: Mucous Membranes Moist - Neck Exam Neck exam: Positive for: Normal Inspection - Respiratory Exam Respiratory Exam: Clear to Auscultation Bilateral, NORMAL BREATHING PATTERN. absent: Rhonchi, Wheezes - Cardiovascular Exam Cardiovascular Exam: REGULAR RHYTHM, +S1, +S2 - GI/Abdominal Exam GI & Abdominal Exam: Normal Bowel Sounds, Soft. absent: Tenderness - Back Exam Back exam: absent: CVA tenderness (L), CVA tenderness (R) - Neurological Exam Neurological exam: Alert, Oriented x3 - Psychiatric Exam Psychiatric exam: Flat Affect, Normal Affect - Skin Skin Exam: Normal Color, Warm Results - Vital Signs Recent Vital Signs: Last Vital Signs Temp 98.2 F 04/13/18 00:09 Pulse 74 04/13/18 00:23 Resp 19 04/13/18 00:09 BP 158/74 H 04/13/18 00:23 Pulse Ox 96 04/13/18 00:24 - Labs Result Diagrams: 04/12/18 15:05 04/12/18 15:05 Labs: Laboratory Results - last 24 hr 04/12/18 04/12/18 04/12/18 15:05 15:05 15:05 WBC 5.5 RBC 4.76 Hgb 12.6 Hct 38.9 MCV 81.7 MCH 26.6 L MCHC 32.5 L RDW 13.6 Plt Count 259 MPV 9.3 Neut % (Auto) 53.1 Lymph % (Auto) 31.2 [place] % (Auto) 12.0 H Eos % (Auto) 2.3 Baso % (Auto) 1.4 Neut # (Auto) 2.9 Lymph # (Auto) 1.7 [place] # (Auto) 0.7 Eos # (Auto) 0.1 Baso # (Auto) 0.1 PT 12.0 INR 1.1 APTT 30.3 Sodium 146 Potassium 4.3 Chloride 107 Carbon Dioxide 26 Anion Gap 17 BUN 15 Creatinine 1.2 Est GFR ( Amer) 52 Est GFR (Non-Af Amer) 43 Random Glucose 99 Calcium 10.3 H Total Bilirubin 0.4 AST 39 H ALT 30 Alkaline Phosphatase 81 Total Protein 8.1 Albumin 4.3 Globulin 3.8 Albumin/Globulin Ratio 1.1 Lipase 185 Urine Color Urine Clarity Urine pH Ur Specific [place] Urine Protein Urine Glucose (UA) Urine Ketones Urine Blood Urine Nitrate Urine Bilirubin Urine Urobilinogen Ur Leukocyte Esterase Urine RBC (Auto) Influenza Typ A,B (EIA) 04/12/18 04/12/18 15:05 19:15 WBC RBC Hgb Hct MCV MCH MCHC RDW Plt Count MPV Neut % (Auto) Lymph % (Auto) [place] % (Auto) Eos % (Auto) Baso % (Auto) Neut # (Auto) Lymph # (Auto) [place] # (Auto) Eos # (Auto) Baso # (Auto) PT INR APTT Sodium Potassium Chloride Carbon Dioxide Anion Gap BUN Creatinine Est GFR ( Amer) Est GFR (Non-Af Amer) Random Glucose Calcium Total Bilirubin AST ALT Alkaline Phosphatase Total Protein Albumin Globulin Albumin/Globulin Ratio Lipase Urine Color Yellow Urine Clarity Clear Urine pH 7.0 Ur Specific [place] 1.036 H Urine Protein Negative Urine Glucose (UA) Neg Urine Ketones Negative Urine Blood Negative Urine Nitrate Negative Urine Bilirubin Negative Urine Urobilinogen 0.2-1.0 Ur Leukocyte Esterase Neg Urine RBC (Auto) 3 Influenza Typ A,B (EIA) Negative for flu a/b Assessment & Plan - Assessment and Plan (Free Text) Assessment: A/P: 82 y/o F with PMH of CVA in 2004, pacemaker, HTN, and Osteoarthritis admitted to [facility] for evaluation and treatment of poor appetite and possible recent weight loss. - CBC/CMP/UA/Lipase WNL - CT abdo/pelvis: Fatthy liver, localized mild enteritis, dilated proximal pancreatic duct - Weight 134 a month ago and 132 today - GI consult, Dr. Neff, f/u recommendations - Consider Abx - Conside MRCP - Patient ate breakfast this morning - Possible discharge if cleared by GI - C/w home medications: Norvasc, plavix, Hydralazine and Lyrica - DVT ppx Case discussed with Dr. Navas <Rojas Navas - Last Filed: 04/14/18 09:08> Results - Vital Signs Recent Vital Signs: Last Vital Signs Temp 97.7 F 04/14/18 08:07 Pulse 64 04/14/18 08:07 Resp 19 04/14/18 08:07 BP 118/69 04/14/18 08:07 Pulse Ox 96 04/14/18 08:07 - Labs Result Diagrams: 04/12/18 15:05 04/12/18 15:05 Assessment & Plan - Assessment and Plan (Free Text) Assessment: Patient was personally seen and examined by me in rounds with residents. Available labs and diagnostic data reviewed. Case, Patient's condition and management plan discussed with residents in rounds. Agree with resident's progress note. Plan: As ordered.
[2018-04-13] MEDS ORDERED: metroNIDAZOLE 500mg/100ml NS 100 ML IVPB SCH (09:00)
[2018-04-13] MEDS ORDERED: Ciprofloxacin 400mg/200ml D5W 400 MG/200 ML BAG IVPB SCH (09:00)
[2018-04-13] MEDS: Enoxaparin 30 mg Syringe SC SCH (09:30)
--- NOTE | 2018-04-13 09:39 | CARD ---
APPROVED REPORT Date of service: 04/12/2018 EKG Measurement Heart [id number] <Conclusion> Normal sinus rhythm Normal ECG
[2018-04-13 14:08] VITALS: BMI 22.9
[2018-04-14] MEDS: Enoxaparin 30 mg Syringe SC SCH (09:44)
--- NOTE | 2018-04-14 10:29 | PN ---
DATE: 04/14/2018 SUBJECTIVE: The patient is seen and examined. Interim events noted. Renal consult is pending. The patient feels okay, complains of arthritic pain. No chest pain. No shortness of breath or abdominal pain. PHYSICAL EXAMINATION: GENERAL: The patient is in no acute distress. VITAL SIGNS: Stable. HEART: S1 and S2, normal and regular. LUNGS: Good bilateral air exchange. ABDOMEN: Soft and nontender. No sign of acute arthritis. The patient has chronic arthritic pain. DIAGNOSTIC DATA: Available diagnostic data reviewed. ASSESSMENT: Overall, the patient's general medical condition is stable. PLAN: As ordered. Rojas Navas MD
[2018-04-15 05:35] LABS: HEMOGLOBIN 11.2 g/dL (12.0-16.0); MEAN CELL VOLUME 81.3 fl (81.0-99.0); MEAN CORPUSCULAR HEMOGLOBIN 26.2 pg (27.0-31.0); MEAN CORPUSCULAR HGB CONC 32.2 g/dL (33.0-37.0); RBC 4.26 Mil/uL (3.80-5.20); RED CELL DISTRIBUTION WIDTH 13.7 % (11.5-14.5); WHITE BLOOD COUNT 4.8 K/uL (4.8-10.8)
[2018-04-15 05:46] LABS: ALBUMIN 3.4 g/dL (3.5-5.0)
[2018-04-15] MEDS: Enoxaparin 30 mg Syringe SC SCH (08:55)
[2018-04-15] MEDS: Lidocaine 5% Patch TD SCH (08:55)
[2018-04-15 08:58] LABS: HEMOGLOBIN 11.4 g/dL (12.0-16.0); MEAN CELL VOLUME 80.3 fl (81.0-99.0); MEAN CORPUSCULAR HEMOGLOBIN 26.3 pg (27.0-31.0); MEAN CORPUSCULAR HGB CONC 32.7 g/dL (33.0-37.0); RBC 4.35 Mil/uL (3.80-5.20); RED CELL DISTRIBUTION WIDTH 13.6 % (11.5-14.5); WHITE BLOOD COUNT 4.8 K/uL (4.8-10.8)
--- NOTE | 2018-04-15 12:10 | CP.PCM.CON ---
History of Present Illness - History of Present Illness History of Present Illness: 82 yo female admitted with weight loss and abdominal pain. Has been c/o right lower quadrant abdominal pain. Her daughter recently became ill. Has primary homemaker. Review of Systems - Constitutional Constitutional: absent: Chills - EENT Eyes: absent: Blurred Vision Ears: absent: Ear Discharge Nose/Mouth/Throat: absent: Nasal Discharge - Cardiovascular Cardiovascular: absent: Chest Pain - Respiratory Respiratory: absent: Dyspnea - Gastrointestinal Gastrointestinal: As Per HPI - Genitourinary Genitourinary: absent: Change in Urinary Stream Past Patient History - Infectious Disease Hx of Infectious Diseases: None - Past Medical History & Family History Past Medical History?: Yes - Past Social History Smoking Status: Never Smoked - CARDIAC Hx Cardiac Disorders: Yes Hx Hypercholesterolemia: Yes Hx Hypertension: Yes - PULMONARY Hx Respiratory Disorders: No - NEUROLOGICAL Hx Neurological Disorder: No - HEENT Hx HEENT Problems: No - RENAL Hx Chronic Kidney Disease: No - ENDOCRINE/METABOLIC Hx Endocrine Disorders: No - HEMATOLOGICAL/ONCOLOGICAL Hx Blood Disorders: No Hx AIDS: No Hx Human Immunodeficiency Virus (HIV): No - INTEGUMENTARY Hx Dermatological Problems: No - MUSCULOSKELETAL/RHEUMATOLOGICAL Hx Musculoskeletal Disorders: Yes Hx Falls: No Hx Unsteady Gait: Yes - GASTROINTESTINAL Hx Gastrointestinal Disorders: No - GENITOURINARY/GYNECOLOGICAL Hx Genitourinary Disorders: No - PSYCHIATRIC Hx Psychophysiologic Disorder: No Hx Substance Use: No - SURGICAL HISTORY Hx Surgeries: Yes Hx Cardiac Catheterization: Yes Hx Herniorrhaphy: Yes (LT) Hx Hysterectomy: Yes Hx Tubal Ligation: Yes - ANESTHESIA Hx Anesthesia: Yes Hx Anesthesia Reactions: No Hx Malignant Hyperthermia: No Meds Allergies/Adverse Reactions: Allergies Allergy/AdvReac Type Severity Reaction Status Date / Time No Known Allergies Allergy Verified 04/12/18 13:49 - Medications Medications: Current Medications Amlodipine Besylate (Norvasc) 5 mg PO DAILY [facility] Last Admin: 04/15/18 08:56 Dose: 5 mg Clopidogrel Bisulfate (Plavix) 75 mg PO DAILY [facility] Last Admin: 04/15/18 08:57 Dose: 75 mg Enoxaparin Sodium (Lovenox) 30 mg SC DAILY [facility]; Protocol Last Admin: 04/15/18 08:55 Dose: 30 mg Hydralazine HCl (Apresoline) 25 mg PO Q12 [facility] Last Admin: 04/15/18 08:57 Dose: 25 mg Lidocaine (Lidoderm) 1 ea TD DAILY [facility] Last Admin: 04/15/18 08:55 Dose: 1 ea Morphine Sulfate (Morphine) 2 mg IVP Q4 PRN PRN Reason: Pain, severe (8-10) Pregabalin (Lyrica) 75 mg PO Q12 [facility] Last Admin: 04/15/18 08:54 Dose: 75 mg Physical Exam - Constitutional Appears: No Acute Distress - Head Exam Head Exam: ATRAUMATIC - Eye Exam Eye Exam: Normal appearance - ENT Exam ENT Exam: Normal Exam - Neck Exam Neck exam: Positive for: Normal Inspection - Respiratory Exam Respiratory Exam: Clear to Auscultation Bilateral - Cardiovascular Exam Cardiovascular Exam: REGULAR RHYTHM, +S1, +S2 - GI/Abdominal Exam GI & Abdominal Exam: Normal Bowel Sounds, Soft Results - Vital Signs Recent Vital Signs: Last Vital Signs Temp 97.8 F 04/15/18 09:00 Pulse 87 04/15/18 09:00 Resp 20 04/15/18 09:00 BP 136/74 04/15/18 09:00 Pulse Ox 95 04/15/18 09:00 - Labs Result Diagrams: 04/15/18 08:30 04/15/18 05:29 Labs: Laboratory Results - last 24 hr 04/15/18 04/15/18 04/15/18 05:00 05:29 08:30 WBC 4.8 4.8 RBC 4.26 4.35 Hgb 11.2 L 11.4 L Hct 34.6 34.9 MCV 81.3 80.3 L MCH 26.2 L 26.3 L MCHC 32.2 L 32.7 L RDW 13.7 13.6 Plt Count 221 220 Sodium 143 Potassium 4.2 Chloride 104 Carbon Dioxide 27 Anion Gap 16 BUN 25 H Creatinine 1.3 H Est GFR ( Amer) 47 Est GFR (Non-Af Amer) 39 Random Glucose 94 Calcium 9.0 Total Bilirubin 0.3 AST 44 H ALT 45 Alkaline Phosphatase 64 Total Protein 6.7 Albumin 3.4 L D Globulin 3.3 Albumin/Globulin Ratio 1.0 - Imaging and Cardiology CT scan - abdomen Status: Image reviewed by me, Report reviewed by me Assessment & Plan (1) Abnormal CT of the abdomen Assessment and Plan: Ongoing right sided abdominal pain associated with evidence of enteritis on CT and declining albumin. Will start Cipro for possible infectious enteritis. Status: Acute
[2018-04-15] MEDS ORDERED: Ciprofloxacin 400mg/200ml D5W 400 MG/200 ML BAG IVPB SCH (12:15)
[2018-04-15] MEDS: Sodium Chloride 0.45% 1,000 ML IV SCH (19:45)
[2018-04-16] MEDS: Ciprofloxacin 400mg/200ml D5W 400 MG/200 ML BAG IVPB SCH ×2 (04:17→16:52)
[2018-04-16 07:36] LABS: ALBUMIN 3.2 g/dL (3.5-5.0)
[2018-04-16] MEDS: Enoxaparin 30 mg Syringe SC SCH ×2 (08:21→10:31)
[2018-04-16] MEDS: Lidocaine 5% Patch TD SCH (08:21)
[2018-04-16] MEDS: Sodium Chloride 0.45% 1,000 ML IV SCH ×2 (08:25→20:00)
--- NOTE | 2018-04-16 08:36 | PN ---
DATE: 04/15/2018 SUBJECTIVE: The patient seen and examined. Interim events noted. The patient remains in regular medical floor. The patient is sleeping, arousable. Denies any specific complaint. No chest pain or shortness of breath. Complains of burning noncardiac pain. Claims . PHYSICAL EXAMINATION: GENERAL: The patient is in no acute distress. VITAL SIGNS: Stable. HEART: S1, S2 normal and regular.. LUNGS: Good bilateral air exchange. ABDOMEN: Soft, nontender. EXTREMITIES: No edema, no calf swelling. No tenderness. No acute ischemia. CENTRAL NERVOUS SYSTEM: Exam is essentially unchanged. DIAGNOSTIC DATA: Available diagnostic data reviewed. Rojas Navas MD
--- NOTE | 2018-04-16 15:49 | PN ---
DATE: 04/16/2018 SUBJECTIVE: The patient seen and examined. Interim events noted. Consults noted and appreciated. Discussed followup and intervention noted and appreciated. The patient remains in regular medical floor, feels better. Abdominal pain resolved, complains of osteoarthritic leg pain. No new complaint of chest pain or shortness of breath. PHYSICAL EXAMINATION: GENERAL: The patient is in no acute distress. VITAL SIGNS: Stable. HEART: S1, S2 normal. Regular. LUNGS: Good bilateral air exchange. ABDOMEN: Soft, nontender. EXTREMITIES: No edema. No calf swelling. No tenderness. No acute ischemia. CENTRAL NERVOUS SYSTEM: Essentially unchanged. DIAGNOSTIC DATA: Available diagnostic data reviewed. ASSESSMENT: Overall, the patient's general medical condition is stable. PLAN: As ordered. Rojas Navas MD
[2018-04-17 00:12] VITALS: BP 130/70
[2018-04-17] MEDS: Ciprofloxacin 400mg/200ml D5W 400 MG/200 ML BAG IVPB SCH (04:04)
[2018-04-17 06:23] LABS: HEMOGLOBIN 10.9 g/dL (12.0-16.0); MEAN CELL VOLUME 82.3 fl (81.0-99.0); MEAN CORPUSCULAR HEMOGLOBIN 26.1 pg (27.0-31.0); MEAN CORPUSCULAR HGB CONC 31.7 g/dL (33.0-37.0); RBC 4.17 Mil/uL (3.80-5.20); WHITE BLOOD COUNT 5.2 K/uL (4.8-10.8)
[2018-04-17 06:32] LABS: ALBUMIN 3.3 g/dL (3.5-5.0); CALCIUM 9.1 mg/dL (8.4-10.2)
[2018-04-17 08:33] VITALS: PULSE 71; RESP 18; TEMP 97.5; O2SAT 94
[2018-04-17] MEDS: Lidocaine 5% Patch TD SCH (09:03)
[2018-04-17] MEDS: Enoxaparin 30 mg Syringe SC SCH (09:04)
--- NOTE | 2018-04-17 10:45 | CP.PCM.DIS ---
Provider - Provider Date of Admission: 04/12/18 19:54 Attending physician: Rojas Navas MD Primary care physician: Dr. Stephens Consults: 04/12/18 19:55 Gastroenterology Consult Stat Comment: Consulting Provider: Robbi Neff Consulting Physician: Robbi Neff Reason for Consult: dilated pancreatic duct 04/13/18 07:39 Case Management Referral Routine Comment: Physician Instructions: Reason For Exam: Reason for Referral: Web Site Project Manager Eval 04/13/18 09:00 Social Work Referral Routine Comment: pls evaluate needs Physician Instructions: Reason For Exam: patient has homemaker/ VNA services Time Spent in preparation of Discharge (in minutes): 40 Diagnosis - Discharge Diagnosis (1) Enteritis Status: Acute Hospital Course - Lab Results Lab Results: Most Recent Lab Values WBC 5.2 K/uL (4.8-10.8) 04/17/18 05:50 RBC 4.17 Mil/uL (3.80-5.20) 04/17/18 05:50 Hgb 10.9 g/dL (12.0-16.0) L 04/17/18 05:50 Hct 34.3 % (34.0-47.0) 04/17/18 05:50 MCV 82.3 fl (81.0-99.0) D 04/17/18 05:50 MCH 26.1 pg (27.0-31.0) L 04/17/18 05:50 MCHC 31.7 g/dL (33.0-37.0) L 04/17/18 05:50 RDW 14.0 % (11.5-14.5) 04/17/18 05:50 Plt Count 214 K/uL (130-400) 04/17/18 05:50 MPV 9.3 fl (7.2-11.7) 04/12/18 15:05 Neut % (Auto) 53.1 % (50.0-75.0) 04/12/18 15:05 Lymph % (Auto) 31.2 % (20.0-40.0) 04/12/18 15:05 [place] % (Auto) 12.0 % (0.0-10.0) H 04/12/18 15:05 Eos % (Auto) 2.3 % (0.0-4.0) 04/12/18 15:05 Baso % (Auto) 1.4 % (0.0-2.0) 04/12/18 15:05 Neut # (Auto) 2.9 K/uL (1.8-7.0) 04/12/18 15:05 Lymph # (Auto) 1.7 K/uL (1.0-4.3) 04/12/18 15:05 [place] # (Auto) 0.7 K/uL (0.0-0.8) 04/12/18 15:05 Eos # (Auto) 0.1 K/uL (0.0-0.7) 04/12/18 15:05 Baso # (Auto) 0.1 K/uL (0.0-0.2) 04/12/18 15:05 PT 12.0 Seconds (9.8-13.1) 04/12/18 15:05 INR 1.1 04/12/18 15:05 APTT 30.3 Seconds (25.6-37.1) 04/12/18 15:05 Sodium 140 mmol/l (132-148) 04/17/18 05:50 Potassium 4.3 MMOL/L (3.6-5.0) 04/17/18 05:50 Chloride 104 mmol/L (98-107) 04/17/18 05:50 Carbon Dioxide 26 mmol/L (22-30) 04/17/18 05:50 Anion Gap 14 (10-20) 04/17/18 05:50 BUN 21 mg/dl (7-17) H 04/17/18 05:50 Creatinine 1.2 mg/dl (0.7-1.2) 04/17/18 05:50 Est GFR ( Amer) 52 04/17/18 05:50 Est GFR (Non-Af Amer) 43 04/17/18 05:50 Random Glucose 108 mg/dL (65-105) H 04/17/18 05:50 Calcium 9.1 mg/dL (8.4-10.2) 04/17/18 05:50 Phosphorus 3.2 mg/dl (2.5-4.5) 04/16/18 06:10 Magnesium 2.0 MG/DL (1.6-2.3) 04/16/18 06:10 Total Bilirubin 0.2 mg/dl (0.2-1.3) 04/17/18 05:50 AST 29 U/L (14-36) 04/17/18 05:50 ALT 25 U/L (9-52) 04/17/18 05:50 Alkaline Phosphatase 66 U/L (38-126) 04/17/18 05:50 Total Protein 6.4 G/DL (6.3-8.2) 04/17/18 05:50 Albumin 3.3 g/dL (3.5-5.0) L 04/17/18 05:50 Globulin 3.1 gm/dL (2.2-3.9) 04/17/18 05:50 Albumin/Globulin Ratio 1.0 (1.0-2.1) 04/17/18 05:50 Lipase 185 U/L (23-300) 04/12/18 15:05 Urine Color Yellow (YELLOW) 04/12/18 19:15 Urine Clarity Clear (Clear) 04/12/18 19:15 Urine pH 7.0 (5.0-8.0) 04/12/18 19:15 Ur Specific [place] 1.036 (1.003-1.030) H 04/12/18 19:15 Urine Protein Negative mg/dL (NEGATIVE) 04/12/18 19:15 Urine Glucose (UA) Neg mg/dL (NEGATIVE) 04/12/18 19:15 Urine Ketones Negative mg/dL (NEGATIVE) 04/12/18 19:15 Urine Blood Negative (NEGATIVE) 04/12/18 19:15 Urine Nitrate Negative (NEGATIVE) 04/12/18 19:15 Urine Bilirubin Negative (NEGATIVE) 04/12/18 19:15 Urine Urobilinogen 0.2-1.0 mg/dL (0.2-1.0) 04/12/18 19:15 Ur Leukocyte Esterase Neg Tomás/uL (Negative) 04/12/18 19:15 Urine RBC (Auto) 3 /hpf (0-3) 04/12/18 19:15 Influenza Typ A,B (EIA) Negative for flu a/b (NEGATIVE) 04/12/18 15:05 - Hospital Course Hospital Course: This is 82 y/o F with PMH of CVA in 2004, pacemaker, HTN, and Osteoarthritis admitted to [facility] for evaluation and treatment of poor appetite, and R abdominal pain. On admission, Afebrile, No WBCs, CBC/CMP/UA/Lipase WNL. CT abdo/pelvis: Fatthy liver, localized mild enteritis, dilated proximal pancreatic duct. GI, Dr. Neff consulted, pt was started on Cipro IV. Patient developed mild PADMINI which improved on the discharge day. Patient is stable for discharge on oral Abx. Patient is tolerating PO, ambulating in room. Patient was cleared by GI on cipro PO for 5 days. Patient instructed to follow up with PMD and check kidney function in a week. Case discussed with Dr. Navas Discharge Exam - Head Exam Head Exam: ATRAUMATIC, NORMOCEPHALIC - Eye Exam Eye Exam: Normal appearance - ENT Exam ENT Exam: Mucous Membranes Moist - Respiratory Exam Respiratory Exam: Clear to PA & Lateral, NORMAL BREATHING PATTERN. absent: Respiratory Distress - Cardiovascular Exam Cardiovascular Exam: REGULAR RHYTHM, +S1, +S2 - GI/Abdominal Exam GI & Abdominal Exam: Normal Bowel Sounds, Soft. absent: Distended, Tenderness - Extremities Exam Extremities exam: normal inspection - Back Exam Back exam: absent: CVA tenderness (L), CVA tenderness (R) - Neurological Exam Neurological exam: Alert, Oriented x3 - Psychiatric Exam Psychiatric exam: Normal Affect - Skin Skin Exam: Normal Color Discharge Plan - Discharge Medications Prescriptions: Ciprofloxacin HCl [Cipro] 500 mg PO Q12 5 Days #10 tablet - Follow Up Plan Condition: STABLE Disposition: HOME/ ROUTINE Instructions: Minimize Weight Loss, Colitis Additional Instructions: follow up with primary MD 1 week Repeat BMP in one week to check kidney function Referrals: Gabrielle Stepehns MD [Family Provider] - Robbi Neff MD [Staff Provider] -
== END 2018-04-17 14:29 | disposition home or self-care (01) | DRG 392 ==
LOC: H.ER 13:47 → H.ERHOLD 19:54 → H.MEDSURG1 21:03
PROVIDERS: ADMIT Internal Medicine; ATTEND Internal Medicine
DX: A09 Infectious gastroenteritis and colitis, unspecified (principal); N17.9 Acute kidney failure, unspecified; K76.0 Fatty (change of) liver, not elsewhere classified; F41.9 Anxiety disorder, unspecified; M19.90 Unspecified osteoarthritis, unspecified site; I25.10 Atherosclerotic heart disease of native coronary artery without angina pectoris; Z86.73 Personal history of transient ischemic attack (TIA), and cerebral infarction without residual deficits; F32.9 Major depressive disorder, single episode, unspecified; I10 Essential (primary) hypertension; E78.00 Pure hypercholesterolemia, unspecified; K29.70 Gastritis, unspecified, without bleeding; Z95.0 Presence of cardiac pacemaker; Z90.710 Acquired absence of both cervix and uterus; Z79.02 Long term (current) use of antithrombotics/antiplatelets; Z98.51 Tubal ligation status; K59.00 Constipation, unspecified